=== PATIENT | female | born 1970 | race Caucasian/White ===

== ENCOUNTER 2018-11-08 10:36 | Emergency (ER) | payer BC ==
[2018-11-08] MEDS ORDERED: ASPIRIN 81 MG TABLET, CHEWABLE PO ONE (11:28)
--- NOTE | 2018-11-08 11:32 | ER Document Report ---
ED Medical Screen (RME) - General Chief Complaint: Chest Pain Stated Complaint: CHEST PAIN Time Seen by Provider: 11/08/18 11:28 Notes: Generally healthy 48-year-old female with history of heart palpitations on low- dose Toprol followed by Dr. Rojas presents to the emergency department with chief complaint of chest pain that started left subscapular at 1:30 AM and has since radiated to her anterior left chest. Patient states the pain is dull and squeezing, intermittent, does not radiate to her jaws or arms, and is not relieved or exacerbated by anything. She denies any nausea, diaphoresis, acute shortness of breath. She denies any recent illness. She denies cough or congestion. She denies fevers or chills. Patient is concerned because she had a friend who had chest pain not long ago, blew it off, and ultimately from a cardiac event. I have greeted and performed a rapid initial assessment of this patient. A comprehensive ED assessment and evaluation of the patient, analysis of test results and completion of medical decision making process will be conducted by an additional ED providers. TRAVEL OUTSIDE OF THE [place] IN LAST 30 DAYS: No - Related Data Allergies/Adverse Reactions: Penicillins Allergy (Verified 11/08/18 10:37) Past Medical History - Social History Chew tobacco use (# tins/day): No Frequency of alcohol use: None Drug Abuse: None Renal/ Medical History: Denies: Hx Peritoneal Dialysis Past Surgical History: Reports: Hx Cholecystectomy, Hx Hysterectomy Physical Exam - Vital signs Vitals: Temp Pulse Resp BP Pulse Ox 98.5 F 70 16 142/88 H 99 11/08/18 10:40 11/08/18 10:40 11/08/18 10:40 11/08/18 10:40 11/08/18 10:40 - Notes Notes: PHYSICAL EXAMINATION: Reviewed vital signs and charting by RN GENERAL: Alert, interacts well. No acute distress. HEAD: Normocephalic, atraumatic. EYES: Pupils equal and round. Extraocular movements intact. ENT: Oral mucosa moist, tongue midline. NECK: Full range of motion. Trachea midline. LUNGS: Clear to auscultation bilaterally, no wheezes, rales, or rhonchi. No respiratory distress. HEART: Regular rate and rhythm. No murmur ABDOMEN: Deferred in triage EXTREMITIES: Moves all 4 extremities spontaneously. No edema, No cyanosis. PSYCH: Normal affect, normal mood. SKIN: Warm, dry, normal turgor. No rashes or lesions noted. Course - Vital Signs Vital signs: Temp Pulse Resp BP Pulse Ox 98.5 F 70 16 142/88 H 99 11/08/18 10:40 11/08/18 10:40 11/08/18 10:40 11/08/18 10:40 11/08/18 10:40
[2018-11-08 12:02] LABS: ABSOLUTE BASOPHILS # (AUTO) 0.1 10^3/uL (0.0-0.2); ABSOLUTE EOSINOPHILS # (AUTO) 0.1 10^3/uL (0.0-0.6); ABSOLUTE MONOCYTES (AUTO) 0.4 10^3/uL (0.1-1.4); TOTAL CELLS COUNTED % (AUTO) 100 %
--- NOTE | 2018-11-08 12:03 | RADIOLOGY REPORT (SQ) ---
EXAM DESCRIPTION: CHEST 2 VIEWS COMPLETED DATE/TIME: 11/08/2018 11:55 am REASON FOR STUDY: chest pain COMPARISON: None. EXAM PARAMETERS: NUMBER OF VIEWS: two views TECHNIQUE: Digital Frontal and Lateral radiographic views of the chest acquired. RADIATION DOSE: NA LIMITATIONS: none FINDINGS: LUNGS AND PLEURA: No opacities, masses or pneumothorax. No pleural effusion. MEDIASTINUM AND HILAR STRUCTURES: No masses or contour abnormalities. HEART AND VASCULAR STRUCTURES: Heart normal size. No evidence for failure. BONES: No acute findings. HARDWARE: None in the chest. OTHER: No other significant finding. IMPRESSION: NO ACUTE RADIOGRAPHIC FINDING IN THE CHEST. TECHNICAL DOCUMENTATION: JOB ID: [id number] [employer]- All Rights Reserved Reading location - IP/workstation name: [email or web address]
[2018-11-08 12:07] LABS: ABSOLUTE LYMPHOCYTES (AUTO) 2.3 10^3/uL (0.5-4.7); ABSOLUTE NEUT (AUTO) 2.8 10^3/uL (1.7-8.2); BASOPHILS % (AUTO) 1.1 % (0-2); EOSINOPHILS % (AUTO) 1.3 % (0-6); HEMATOCRIT 41.6 % (36.0-47.0); HEMOGLOBIN 14.2 g/dL (12.0-15.5); LYMPHOCYTES % (AUTO) 40.3 % (13-45); MEAN CORPUSCULAR HEMOGLOBIN 30.6 pg (27.0-33.4); MEAN CORPUSCULAR HGB CONC 34.2 g/dL (32.0-36.0); MEAN CORPUSCULAR VOLUME 89 fl (80-97); MONOCYTES % (AUTO) 7.1 % (3-13); PLATELET COUNT 367 10^3/uL (150-450); RED BLOOD COUNT 4.66 10^6/uL (3.72-5.28); RED CELL DISTRIBUTION WIDTH 12.6 % (11.5-14.0); SEGMENTED NEUTROPHILS % (AUTO) 50.2 % (42-78); WHITE BLOOD COUNT 5.7 10^3/uL (4.0-10.5)
[2018-11-08 12:26] LABS: ALANINE AMINOTRANSFERASE 25 U/L (9-52); ALBUMIN 4.6 g/dL (3.5-5.0); ALKALINE PHOSPHATASE 59 U/L (38-126); ANION GAP 8 (5-19); ASPARTATE AMINO TRANSFERASE 22 U/L (14-36); BILIRUBIN,DIRECT 0.1 mg/dL (0.0-0.4); BILIRUBIN,TOTAL 0.5 mg/dL (0.2-1.3); BLOOD UREA NITROGEN 18 mg/dL (7-20); CARBON DIOXIDE 29 mmol/L (22-30); CHLORIDE 104 mmol/L (98-107); GLUCOSE 91 mg/dL (75-110); POTASSIUM 4.9 mmol/L (3.6-5.0); SODIUM 140.6 mmol/L (137-145); TOTAL PROTEIN 7.3 g/dL (6.3-8.2)
--- NOTE | 2018-11-08 13:24 | ER Document Report ---
Entered by SURESH MAHONEY SCRIBE 11/08/18 [id number] Acting as scribe for:ARIELA CROWE MD ED General - General Chief Complaint: Chest Pain Stated Complaint: CHEST PAIN Time Seen by Provider: 11/08/18 11:28 Mode of Arrival: Ambulatory Information source: Patient Notes: Patient is a 48-year-old female that presents to the emergency department today with complaints of left-sided pain that the patient describes as a "persistent annoying pain around my left shoulder blade area". Patient states that she first noticed this pain this morning at 0130. Patient states that this morning she was doing housework and she noticed that the pain seemed to become more severe as she was exerting herself. Patient states there was no specific activity that seemed to cause pain exacerbation. Patient denies any shortness of breath. Patient states that the pain remained constant until shortly after getting 4 baby aspirin aspirin triage at 11:42 AM. TRAVEL OUTSIDE OF THE [place] IN LAST 30 DAYS: No - Related Data Allergies/Adverse Reactions: Penicillins Allergy (Verified 11/08/18 10:37) Past Medical History - General Information source: Patient - Social History Smoking Status: Never Smoker Cigarette use (# per day): No Chew tobacco use (# tins/day): No Frequency of alcohol use: None Drug Abuse: None Occupation: Nurse case management coordinator Lives with: Family Family History: Reviewed & Not Pertinent Patient has suicidal ideation: No Patient has homicidal ideation: No Past Surgical History: Reports: Hx Cholecystectomy, Hx Hysterectomy, Other - Retinal reattachment from traumatic event Review of Systems - Review of Systems Constitutional: No symptoms reported EENT: No symptoms reported Cardiovascular: No symptoms reported Respiratory: denies: Short of breath Gastrointestinal: No symptoms reported Genitourinary: No symptoms reported Female Genitourinary: No symptoms reported Musculoskeletal: See HPI, Other - pain located around the left shoulder blade Skin: No symptoms reported Hematologic/Lymphatic: No symptoms reported Neurological/Psychological: No symptoms reported -: Yes All other systems reviewed and negative Physical Exam - Vital signs Vitals: Temp Pulse Resp BP Pulse Ox 98.5 F 70 16 142/88 H 99 11/08/18 10:40 11/08/18 10:40 11/08/18 10:40 11/08/18 10:40 11/08/18 10:40 - Notes Notes: Physical Exam: General: Alert, appears well. HEENT: Normocephalic. Atraumatic. PERRL. Extraocular movements intact. Oropharynx clear. Neck: Supple. Non-tender. Respiratory: No respiratory distress. Clear and equal breath sounds bilaterally. Cardiovascular: Regular rate and rhythm. Abdominal: Normal Inspection. Non-tender. No distension. Normal Bowel Sounds. Back: Grossly normal. Palpation of the left scapular area where the patient indicates the pain is located does not provoke any pain. Extremities: Moves all four extremities. Upper extremities: Normal inspection. Normal ROM. Lower extremities: Normal inspection. No edema. Normal ROM. Neurological: Normal cognition. AAOx4. Normal speech. Psychological: Normal affect. Normal Mood. Skin: Warm. Dry. Normal color. Course - Re-evaluation Re-evalutation: 11/08/18 13:35 Patient's EKG done during a time of pain is unremarkable. Chest x-ray is unremarkable. The patient did have continuous pain for at least 10 hours. Her troponin is undetectable. Her d-dimer is barely above the detectable level, but is quite low. She does not smoke, does not take hormone replacement. - Vital Signs Vital signs: Temp Pulse Resp BP Pulse Ox 98.5 F 70 16 142/88 H 99 11/08/18 10:40 11/08/18 10:40 11/08/18 10:40 11/08/18 10:40 11/08/18 12:30 - Laboratory Result Diagrams: 11/08/18 11:46 11/08/18 11:46 Discharge - Discharge Clinical Impression: Chest pain Qualifiers: Chest pain type: unspecified Qualified Code(s): R07.9 - Chest pain, unspecified Condition: Stable Disposition: HOME, SELF-CARE Additional Instructions: Chest Pain of Unclear Cause The exact cause of your chest pain isn't clear. Fortunately, there is no ev idence of a dangerous medical condition. Further testing may be required to find the source of the pain. Most often, we find that this pain is coming from the chest wall -- the muscles or rib joints in the chest. But chest pain can come from the lung and lung lining, the esophagus, the heart valves or heart lining, and even the stomach or gallbladder. Rest. Eat lightly until the pain is gone. We may prescribe medicine for pain and inflammation. You should call the physician immediately if the pain radiates to the shoulder, jaw or arms; if you start to run a fever or develop a cough; or if you develop shortness of breath, or other new or alarming symptoms. Follow-up with your primary care provider if any further problems. RETURN TO THE EMERGENCY ROOM IF ANY NEW OR WORSENING SYMPTOMS. Milaibe Attestation: 11/08/18 13:14 I personally performed the services described in the documentation, reviewed and edited the documentation which was dictated to the scribe in my presence, and it accurately records my words and actions. I personally performed the services described in the documentation, reviewed and edited the documentation which was dictated to the scribe in my presence, and it accurately records my words and actions.
[2018-11-08 13:48] VITALS: BP 140/84
--- NOTE | 2018-11-08 16:06 | EKG REPORT ---
SEVERITY:- BORDERLINE ECG - SINUS RHYTHM PROBABLE LEFT ATRIAL ABNORMALITY : Confirmed by: Giancarlo Vasquez MD 08-Nov-2018 16:04:47
== END 2018-11-08 13:45 | disposition home or self-care (01) ==
LOC: ER 10:36
DX: R07.9 Chest pain, unspecified (principal); Z90.710 Acquired absence of both cervix and uterus; Z90.49 Acquired absence of other specified parts of digestive tract; Z88.0 Allergy status to penicillin
CPT/HCPCS: 36415; 71046; 80053; 84484; 85025; 85379; 93005; 93010; 99284